=== PATIENT | female | born 1990 | race Caucasian/White ===

== ENCOUNTER 2017-09-19 10:49 | Inpatient (IN) | payer OTHER ==
[2017-09-19] VITALS (16 sets, daily range): BP systolic 101–134; BP diastolic 55–77
[~2017-09-19] VITALS: Ht 165.1 cm; Wt 75.0 kg
[~2017-09-19 10:49] MED LIST: CEFDINIR300 MG PO; IBUPROFEN800 MG PO; PRENATAL TABLE1 EAC3 PO
[2017-09-19 12:16] LABS: BASOPHIL (%) 0.6 % (0-1); EOSINOPHIL (%) 1.9 % (0-5); EOSINOPHIL COUNT 0.1 K/uL (0-0.3); HEMATOCRIT 37.6 % (36.0-46.0); HEMOGLOBIN 12.4 G/DL (11.9-15.5); IMMATURE GRANULOCYTE (%) 0.4 % (0.0-0.7); LYMPHOCYTE (%) 22.1 % (15-42); LYMPHOCYTE COUNT 1.1 K/uL (1.0-2.8); MCH 30.3 PG (29.0-34.0); MCV 91.9 FL (83-99); MONOCYTE (%) 12.4 % (3-12); MONOCYTE COUNT 0.6 K/uL (0-0.8); NEUTROPHIL (%) 62.6 % (45-76); PLATELET COUNT 169 K/uL (156-360); RBC DIS.WIDTH-CV 13.6 % (11.8-14.6); RBC DIS.WIDTH-SD 45.4 % (39-53); RED BLOOD COUNT 4.09 M/uL (3.80-5.20); WHITE BLOOD COUNT 4.8 K/uL (4.1-10.2)
[2017-09-19 12:42] LABS: GROUP B STREP NEGATIVE (NEGATIVE)
[2017-09-19] MEDS ORDERED: IBUPROFEN800 MG PO (16:36)
[2017-09-20 07:46] VITALS: BP 119/63
[2017-09-20 15:39] VITALS: BP 106/64
[2017-09-20 23:50] VITALS: BP 104/50
[2017-09-21 07:46] VITALS: BP 113/55
== END 2017-09-21 14:50 | disposition home or self-care (01) | DRG 775 ==
LOC: LDRP-OP 10:49 → 2WEST 10:50
PROVIDERS: Advanced Practice Midwife
DX: O70.0 First degree perineal laceration during delivery (principal); O60.14X0 Preterm labor third trimester with preterm delivery third trimester, not applicable or unspecified; O99.344 Other mental disorders complicating childbirth; F42.9 Obsessive-compulsive disorder, unspecified; Z87.891 Personal history of nicotine dependence; Z3A.36 36 weeks gestation of pregnancy; Z37.0 Single live birth
CPT/HCPCS: 85025; 87653; C1755; J0702; J2795; J3010; J7120